=== PATIENT | female | born 1960 | race Caucasian/White ===

== ENCOUNTER 2020-03-08 13:38 | Emergency (ER) | payer OTHER ==
[2020-03-08] MEDS ORDERED: LIDOCAINE 5% TOPICAL PATCH TP ONE (13:52)
[2020-03-08] MEDS ORDERED: ACETAMINOPHEN 325 MG TABLET (FP) PO ONE (13:52)
[2020-03-08] MEDS ORDERED: LIDOCAINE 5% TOPICAL PATCH ONE (14:11)
[2020-03-08 14:13] LABS: EPITHELIAL CELLS MODERATE /hpf
[2020-03-08] MEDS ORDERED: ACETAMINOPHEN 500 MG TABLET (FP) ONE (14:17)
--- NOTE | 2020-03-08 14:18 | PDOC ---
History of Present Illness - General Chief Complaint: Pain Stated Complaint: RIGHT MID BACK PAIN INTERMITTENT Time Seen by Provider: 03/08/20 13:43 History Source: Patient Exam Limitations: No Limitations - History of Present Illness Initial Comments: 59 yo F w a hx of cervical radiculopathy presents to the [place] ER with 1 day of right mid-back sharp discomfort which comes and goes. She states the pain is occassionally worse when she goes from lying down position to sitting up. She does not have the back pain at the present time. She has been taking motrin at home for the pain. She came into the ER bc her has a hx of kidney stones and she wanted to make sure she doesn't have a kidney stone. She is also concerned the pain is gastric in nature so she has taken tums at home which did not help her. The pain is rated 7/10 when present. The pain does not radiate to her shoulder, abdomen, or her groin. Denies fevers, chills, dysuria, frequency, urgency, abdominal or chest pain, SOB or difficulty breathing. PCP: Jerman Fernandes PSH: None reported Allergies: Sulfa Social Hx: Denies smokingk, drinking, or other substance abuse Past History - Medical History Allergies/Adverse Reactions: Allergies Allergy/AdvReac Type Severity Reaction Status Date / Time Sulfa (Sulfonamide Allergy Verified 03/08/20 13:39 Antibiotics) Home Medications: Ambulatory Orders Cholecalciferol (Vitamin D3) [Vitamin D3 -] 1,000 unit PO DAILY 03/08/20 Clonazepam 0.25 mg PO DAILY 03/08/20 L.acidoph,Paracasei, B.lactis [Probiotic] 1 each PO DAILY 03/08/20 Pantoprazole Sodium [Protonix -] 20 mg PO DAILY 03/08/20 COPD: No GI Disorders: Yes (HX C-DIFF IBS) Psychiatric Problems: Yes - Immunization History Immunization Up to Date: Yes - Psycho-Social/Smoking History Smoking History: Never smoked Information on smoking cessation initiated: No - Substance Abuse Hx (Audit-C & DAST Scrn) How often the patient has a drink containing alcohol: 2-4 times / month Number of drinks the patient has on a typical day: 1 or 2 Score: In Men: 4 or > Positive; In Women: 3 or > Positive: 2 Screen Result (Pos requires Nsg. Audit-10AR): Negative In the last yr the pt used illegal drug/Rx for NonMed reason: No Score: Yes response is considered Positive: 0 Screen Result (Positive result requires Nsg. DAST-10): Negative Review of Systems - Review of Systems Able to Perform ROS?: Yes Comments:: CONSTITUTIONAL: Absent: fever, no chills, no fatigue EYES: Absent: visual changes ENT: Absent: ear pain, no sore throat CARDIOVASCULAR: Absent: chest pain, no palpitations RESPIRATORY: Absent: cough, no SOB GI: Absent: abdominal pain, no nausea, no vomiting, no constipation, no diarrhea GENITOURINARY: Absent: dysuria, no frequency, no hematuria MUSKULOSKELETAL: Present: Back pain Absent: no arthralgia, no myalgia SKIN: Absent: rash NEURO: Absent: headache *Physical Exam - Vital Signs Last Vital Signs Temp Pulse Resp BP Pulse Ox 98.5 F 90 16 138/70 100 03/08/20 13:39 03/08/20 13:39 03/08/20 13:39 03/08/20 13:39 03/08/20 13:39 - Physical Exam GENERAL: Well-appearing, well-nourished. No apparent distress. HEENT: Normocephalic, atraumatic. PERRL, EOM intact. CARDIOVASCULAR: Normal S1, S2. Regular rate and rhythm. PULMONARY: No evidence of respiratory distress. Lungs clear to auscultation bilaterally. No wheezing, rales or rhonchi. ABDOMEN: Soft, non-distended, non-tender. EXTREMITIES: Normal ROM in all four extremities. No gross deformities. SKIN: Warm, dry. No rash NEUROLOGICAL: No focal neurological deficits. ED Treatment Course - ADDITIONAL ORDERS Additional order review: Laboratory Results 03/08/20 13:57 Urine Color Yellow Urine Appearance Clear Urine pH 5.5 Urine Protein Negative Urine Glucose (UA) Negative Urine Ketones Negative Urine Blood Negative Urine Nitrite Negative Urine Bilirubin Negative Urine Urobilinogen 0.2 Ur Leukocyte Esterase Trace H Urine RBC 0-2 Urine WBC 5-10 Ur Transition Epith Cell Moderate Medical Decision Making - Medical Decision Making 59 yo F w a hx of cervical radiculopathy presents to the [place] ER with 1 day of right mid-back sharp discomfort which comes and goes. She states the pain is occassionally worse when she goes from lying down position to sitting up. She does not have the back pain at the present time. She has been taking motrin at home for the pain. She came into the ER bc her has a hx of kidney stones and she wanted to make sure she doesn't have a kidney stone. She is also concerned the pain is gastric in nature so she has taken tums at home which did not help her. The pain is rated 7/10 when present. The pain does not radiate to her shoulder, abdomen, or her groin. Vital Signs Temp Pulse Resp BP Pulse Ox 98.5 F 90 16 138/70 100 03/08/20 13:39 03/08/20 13:39 03/08/20 13:39 03/08/20 13:39 03/08/20 13:39 DDx IBNLT: MSK back strain/sprain, pneumothorax, UTI, nephrolithiasis, neuropathy/radiculopathy Plan: XR, ua/uc, analgesia, re-assess, likely DC with ortho/pcp fu if pain persists UA: Unremarkable XR: No acute pathology Re-assessment: Patient doing better after lidocaine patch and tylenol. - Most consistent with MSK back pain The patient appears clinically sober, is A&O x4, and appears to be capable and have capacity to make reasonable decisions. The patient states they are currently in the emergency department, knows who the president is, states the correct time, correct day, and correct month. The patient is ambulatory in ER and has walked around the nursing station multiple times with a straight gait, and is not ataxic. Tolerating PO well, ate a sandwich and drank juice. Denies having any SI or HI. Patient states will not be driving home. I discussed the physical exam findings, ancillary test results and final diagnoses with the patient. I answered all of the patient's questions. The patient was satisfied with the care received and felt comfortable with the discharge plan and treatment plan. The patient will call their primary care physician within 24 hours to arrange follow-up and will return to the Emergency Department with any new, persistent or worsening symptoms. Dispo: Home with PCP fu and return precautions. Please note, this clinical encounter is taking place during a federal and state health care emergency attributable to the novel Rodriguez Virus pandemic. The [employer] of the Department of Health and Human Services has declared, pursuant to the Public Health Service Act 319F-3 (42 U.S.C. 247d-6d), that a covered persons activities related to medical countermeasures against COVID-19 will be immune from liability under Federal and State law. Discharge - Discharge Information Problems reviewed: Yes Clinical Impression/Diagnosis: Right-sided thoracic back pain Qualifiers: Chronicity: unspecified Qualified Code(s): M54.6 - Pain in thoracic spine Back pain Qualifiers: Back pain location: thoracic back pain Chronicity: acute Back pain laterality: right Qualified Code(s): M54.6 - Pain in thoracic spine Condition: Stable Disposition: HOME - Admission No - Follow up/Referral Referrals: Jerman Fernandes [Primary Care Provider] - - Patient Discharge Instructions Patient Printed Discharge Instructions: Back Pain (Alternative Therapy), DI for Thoracic Back Pain Additional Instructions: You came into the ER with mid back pain which we believe might be musculoskeletal in nature. Take tylenol/ibuprofen as needed for discomfort. You must return to the Emergency Department with any new complaints, if your symptoms persist and do not improve or if you develop any other new or worsening concerns. As discussed, please call to follow up with your Primary Care physician in 1-2 days to discuss what happened to you in the emergency room, and make sure you are being looked after and taken care of. Your emergency room visit is not complete without this follow up appointment. Please read the attached handouts for further information about your ER visit and what you should do moving forward. Thank you for coming to the [facility] ER. We hope you feel better soon! Print Language: NEPALI - Post Discharge Activity
--- NOTE | 2020-03-08 14:30 | PDOC ---
Attending Attestation - Resident Resident Name: Juan Miguel Barnes - ED Attending Attestation I have performed the following: I have examined & evaluated the patient, The case was reviewed & discussed with the resident, I agree w/resident's findings & plan - HPI HPI: 03/08/20 14:26 Healthy 59-year-old female with history of gastritis on pantoprazole presents with intermittent right midthoracic back pain for several weeks, patient reports random, sharp, localized, fleeting lasting seconds pain to her right mid back, comes and goes randomly without association with position, not pleuritic, not GI related. Has no associated symptoms whatsoever of chest pain or shortness of breath or palpitations, no nausea or vomiting, no dysuria or hematuria. Today, the pain lasted slightly longer but still on the order of seconds and felt more severe so her prompted her to come to the emergency department to rule out kidney stones. - Physicial Exam PE: 03/08/20 14:28 Vital signs stable, afebrile Comfortably seated in stretcher asymptomatic at this time No reproducible tenderness, no appreciable rash Heart regular, lungs clear Abdomen benign No CVA tenderness - Medical Decision Making 03/08/20 14:28 59-year-old female with transient episodes of right mid back pain for several weeks, slightly worsened today, now resolved and asymptomatic. No red flags on history or physical exam, vital signs stable without focal findings. Question musculoskeletal, question related, possibly GI gastric spasm or heartburn, lower suspicion for ACS or primary pulmonary pathology, no evidence of shingles. Urinalysis without blood, trace leukoesterase. No symptoms of UTI. Check chest x-ray Patient otherwise asymptomatic, reassured, given pain control with lidocaine patch trial. We will follow-up with PCP and industrial safety and health specialist, understands return criteria Discharge - Discharge Information Problems reviewed: Yes Clinical Impression/Diagnosis: Right-sided thoracic back pain Qualifiers: Chronicity: unspecified Qualified Code(s): M54.6 - Pain in thoracic spine Condition: Stable - Follow up/Referral Referrals: Jerman Fernandes [Primary Care Provider] - - Patient Discharge Instructions - Post Discharge Activity
[2020-03-08 14:39] VITALS: BP 138/70; PULSE 90; TEMP 98.5; BMI 19.1
[2020-03-08] MEDS ORDERED: LIDOCAINE PATCH REMOVAL MC SCH (22:00)
== END 2020-03-08 15:04 | disposition home or self-care (01) ==
LOC: FER 13:38
DX: M54.6 Pain in thoracic spine (principal)
CPT/HCPCS: 71046-TC-FY; 81003; 81015; 87086; 99284-25